=== PATIENT | male | born 1990 ===

== ENCOUNTER 2017-07-23 06:08 | Day surgery (SDC) | payer OTHER, MEDICAID ==
[2017-07-22 14:50] VITALS: BMI 21.9
[2017-07-23] MEDS ORDERED: Lactated Ringer's 1,000 ML IV ONE (06:57)
[2017-07-23] MEDS ORDERED: Midazolam 2 MG/2 ML VIAL ONE ×2 (07:08→07:31)
[2017-07-23] MEDS ORDERED: Succinylcholine 200 mg/10 ml Inj IV ONE (07:08)
[2017-07-23] MEDS ORDERED: ePHEDrine 50 mg/ml Inj ONE (07:08)
[2017-07-23] MEDS ORDERED: Rocuronium 10 mg/ml (5 ml) ONE (07:08)
[2017-07-23] MEDS ORDERED: Propofol 10 mg/ml Inj (20 ML) ONE ×2 (07:08→07:30)
[2017-07-23] MEDS ORDERED: Sevoflurane - Inhalation Anesthetic Liq (250 ml) ONE (07:29)
[2017-07-23] MEDS ORDERED: Lidocaine Hydrochloride 5 ML INJ ONE (07:29)
[2017-07-23] MEDS ORDERED: Lidocaine 1% Inj (20ml) ONE (07:30)
[2017-07-23] MEDS ORDERED: Bupivacaine 0.5% Inj(30mL) ONE (07:30)
[2017-07-23] MEDS ORDERED: Lidocaine 2% Jelly (5 ml) TOP ONE (07:33)
[2017-07-23] MEDS ORDERED: Lidocaine 2% Inj (20ml) ONE (08:14)
[2017-07-23] MEDS ORDERED: Lidocaine 2% Inj (20ml) IJ ONE (08:20)
[2017-07-23] MEDS ORDERED: HYDROmorphone 0.5 mg/0.5 ml ISec IVP PRN (08:33)
[2017-07-23] MEDS ORDERED: Lactated Ringer's 1,000 ML IV SCH (08:33)
[2017-07-23] MEDS ORDERED: Oxycodone/Acetaminophen 5/325 mg Tab PO PRN (08:55)
--- NOTE | 2017-07-23 08:59 | PCM.SURG1 ---
Surgeon's Initial Post Op Note - Surgeon's Notes Surgeon: Dr. Ron Zepeda Daycare Manager: Farideh Vicente PA-C Type of Anesthesia: General Endo Anesthesia Administered By: Dr. Morocho Pre-Operative Diagnosis: Right Second Carpometacarpal Traumatic Boss,Right Extensor Carpi Radialis. longus and Extensor Digitorum Communis Tenosynovitis, Right Second Carpometacarpal Joint Synovitis Operative Findings: see operative note Post-Operative Diagnosis: same Operation Performed: Right Hand Excision of Carpometacarpal Boss Lesion,Second Carpometacarpal Arthrotomy with Debridement,Right Extensor Digitorum Communis Tenolysis,Right Extensor Carpi Radialis Brevis Tenolysis Specimen/Specimens Removed: none Estimated Blood Loss: EBL {In ML}: 0 Drains Used: No Drains Post-Op Condition: Good Date of Surgery/Procedure: 07/23/17 Time of Surgery/Procedure: 08:00
--- NOTE | 2017-07-23 12:45 | OP ---
PROCEDURE DATE: 07/23/2017 SURGEON: Ron Zepeda MD PROJECT CREW WORKER: Chivo Gong PA PREOPERATIVE DIAGNOSES: 1. Right second carpometacarpal traumatic boss. 2. Right extensor carpi radialis longus and extensor digitorum communis tenosynovitis. 3. Right second carpometacarpal joint synovitis. POSTOPERATIVE DIAGNOSES: 1. Right second carpometacarpal traumatic boss. 2. Right extensor carpi radialis longus and extensor digitorum communis tenosynovitis. 3. Right second carpometacarpal joint synovitis. PROCEDURE: 1. Right second carpometacarpal bony boss excision. 2. Right second carpometacarpal arthrotomy with debridement. 3. Right extensor digitorum communis tenolysis. 4. Right hand extensor carpi radialis brevis tenolysis. TYPE OF ANESTHESIA: General and postoperative local anesthesia. ESTIMATED BLOOD LOSS: None. COMPLICATIONS: None. SPECIMEN: None. DISPOSITION: Stable to recovery room. INDICATIONS: This is a 26-year-old right hand dominant male who injured his hand at work from a crush injury to the hand. The patient has failed conservative therapy and continues to have pain in deformity of the second CMC joint. The patient elected to undergo with the above procedure. The risks included but not limited to bleeding, infection, tendon, nerve and vessel injury, instability, chronic pain, potential need for additional surgery in the future. DESCRIPTION OF THE PROCEDURE: The patient was brought to the operating room and placed supine on the operating room table. After administration of general anesthesia and prophylactic antibiotics and also tourniquet was applied in the right upper extremity. The right upper extremity was then prepped and draped in a standard surgical fashion. A timeout was performed. An incision was outlined. This was a longitudinal 3-cm incision over the second CMC joint. The hand was elevated, exsanguinated, and Esmarch was removed after inflation of the tourniquet to 250 mmHg. The incision was made through the skin only. All superficial veins were cauterized and superficial branches of the radial nerves were identified and protected. The incision was carried down to the retinaculum and the retinaculum was incised. The tendon sheath of the EDC and ECRB was incised. Both tendons were debrided and tenolysis was performed. There was erythema and synovitis in the tendon sheath. Next, the tendons were retracted and second CMC joint arthrotomy was performed and capsular was incised. The bony prominence of the boss was exposed. Then, under direct visualization, a rongeur was used also to excise the boss. Also, the osteotomes were used to perform osteotomy of the boss. The excessive bone was removed. The CMC joint was then entered and inspected. Local debridement of the joint was performed with rongeur, irrigation and curette. The wound was then copiously irrigated. The skin was closed with 4-0 nylon interrupted sutures. The tourniquet was deflated and sterile dressing was applied. The patient tolerated the procedure well. He returns to the recovery room in excellent condition. Chivo Gong PA certified the physician assistant controller, who assist me throughout the entirety of the case. Her help was needed for proper patient positioning, protecting empirical neurovascular structures, retraction and intra and postoperative care of the patient. Ron Zepeda MD Chivo Gong PA (Insert Co-signer name using "Ctrl + Shift + I" window. Delete the co-signature block if not applicable.)
[2017-07-23 13:06] VITALS: RESP 18
[2017-07-23 14:20] VITALS: BP 108/71; PULSE 64; TEMP 97.9; O2SAT 99
== END 2017-07-23 15:30 | disposition home or self-care (01) ==
LOC: H.OPSURG 06:08
PROVIDERS: ATTEND Orthopaedic Surgery
DX: M65.88 Other synovitis and tenosynovitis, other site (principal)
CPT/HCPCS: 25077; 25295; J0330; J0690; J1885; J2001; J2250; J2704; J2765; J3010; J7030; J7120